=== PATIENT | female | born 1955 | race Native Hawaiian/Other Pacific Islander ===

== ENCOUNTER 2018-08-01 11:27 | Emergency (ER) | payer BC ==
[2018-08-01 11:36] VITALS: BMI 32.1
[2018-08-01 11:39] VITALS: RESP 18
--- NOTE | 2018-08-01 11:50 | C.PDOC ---
History Of Present Illness 63 year old female presents to the ED complaining of diffused pruritic rash to arms, upper torso and upper legs since last night. Denies known allergens. Denies use of new lotions, creams or detergents. Denies any fever, chills, shortness of breath, or any other complaints. Time Seen by Provider: 08/01/18 11:40 Chief Complaint (Nursing): Allergic Reaction History Per: Patient History/Exam Limitations: no limitations Onset/Duration Of Symptoms: Hrs Current Symptoms Are (Timing): Still Present Possible Cause: Unknown Associated Symptoms: Itching Past Medical History Reviewed: Historical Data, Nursing Documentation, Vital Signs Vital Signs: Last Vital Signs Temp 99.2 F 08/01/18 11:36 Pulse 71 08/01/18 11:36 Resp 18 08/01/18 11:36 BP 137/88 08/01/18 11:36 Pulse Ox 96 08/01/18 11:36 - Medical History PMH: Asthma, Bronchitis Surgical History: No Surg Hx Family History: States: No Known Family Hx - Social History Hx Alcohol Use: No Hx Substance Use: No - Immunization History Hx Tetanus Toxoid Vaccination: No Hx Influenza Vaccination: No Hx Pneumococcal Vaccination: No Review Of Systems Except As Marked, All Systems Reviewed And Found Negative. Constitutional: Negative for: Fever, Chills Respiratory: Negative for: Cough, Shortness of Breath Skin: Positive for: Rash (itching rash to arms, upper torso and legs ) Physical Exam - Physical Exam Appears: Non-toxic, No Acute Distress Skin: Warm, Dry, Rash (diffused maculopapular erythematous rash to b/l arms, upper torso, and b/l upper legs) Head: Normacephalic Eye(s): bilateral: Normal Inspection Nose: Normal Oral Mucosa: Moist Neck: Supple Chest: Symmetrical Cardiovascular: Rhythm Regular Respiratory: Normal Breath Sounds, No Rales, No Rhonchi, No Wheezing Neurological/Psych: Oriented x3, Normal Speech Gait: Steady ED Course And Treatment O2 Sat by Pulse Oximetry: 96 (RA) Pulse Ox Interpretation: Normal Medical Decision Making Medical Decision Making: ssuepct allergic rxn lungs cta. pt well appearing in nadPlan - Benadryl 50mg PO - Pepcid 20mg PO - Prednisone 50mg PO symptoms impoving. pt asking for dc lungs cta. advis eoutpt fu. Disposition - Disposition Referrals: [facility] [Outside] [facility] [Outside] Disposition: HOME/ ROUTINE Disposition Time: 12:00 Condition: STABLE Prescriptions: DiphenhydrAMINE [Benadryl] 25 mg PO Q4 PRN #20 cap PRN Reason: Itching / Pruritus Famotidine [Pepcid] 20 mg PO DAILY #7 tab RX: Prednisone 50 mg PO DAILY #5 tablet Instructions: Skin Rash, Hives (DC), Allergy Skin Testing Forms: [employer] (Portuguese) - Clinical Impression Clinical Impression: Allergic reaction - Scribe Statement The provider has reviewed the documentation as recorded by the Scribe Diane Urena All medical record entries made by the Scribe were at my direction and personally dictated by me. I have reviewed the chart and agree that the record accurately reflects my personal performance of the history, physical exam, medical decision making, and the department course for this patient. I have also personally directed, reviewed, and agree with the discharge instructions and disposition.
[2018-08-01 12:45] VITALS: BP 128/80; PULSE 62; TEMP 98.5
[2018-08-01 14:37] VITALS: O2SAT 96
== END 2018-08-01 12:49 | disposition home or self-care (01) ==
LOC: C.ER 11:27
DX: T78.40XA Allergy, unspecified, initial encounter (principal)